=== PATIENT | male | born 1965 | race Caucasian/White ===

== ENCOUNTER 2016-09-03 12:17 | Emergency (ER) | payer OTHER ==
[~2016-09-03] VITALS: Ht 193 cm; Wt 111.4 kg
[2016-09-03 12:23] VITALS: TEMP 98.8
[2016-09-03] MEDS ORDERED: CHOLESTEROL MED (12:27)
[2016-09-03 13:49] VITALS: BP 136/97; PULSE 89
== END 2016-09-03 13:58 | disposition home or self-care (01) ==
LOC: COL.ER 12:17
DX: S61.012A Laceration without foreign body of left thumb without damage to nail, initial encounter (principal); W29.8XXA Contact with other powered hand tools and household machinery, initial encounter

== ENCOUNTER 2021-02-06 12:02 | Outpatient (CLI) | payer OTHER ==
[~2021-02-06] VITALS: Ht 193 cm; Wt 111.7 kg
[~2021-02-06 12:02] MED LIST: CHOLESTEROL MED
[2021-02-06] MEDS ORDERED: ELIQUIS 5MG PO (12:21)
[2021-02-06] MEDS ORDERED: LIPITOR 40MG TA40 MG PO (12:22)
[2021-02-06 12:57] VITALS: BP 114/79; PULSE 56; TEMP 98.3
[2021-02-06] MEDS ORDERED: ASPIRIN 81M81 MG/TA2 PO (14:28)
[2021-02-06 14:30] VITALS: BP 126/84; PULSE 60
[2021-02-06 14:56] LABS: HEMATOCRIT 43.6 % (42.0-52.0); HEMOGLOBIN 15.1 g/dl (13.5-18.0); MEAN CELL VOLUME 83 fl (80.0-100.0); MEAN CORPUSCULAR HEMOGLOBIN 29 pg (27.0-31.0); MEAN CORPUSCULAR HGB CONC 35 g/dl (33.0-37.0); MEAN PLATELET VOLUME 8.8 fl (7.4-10.4); PLATELET COUNT 296 K/mm3 (130-400); RED BLOOD COUNT 5.26 M/mm3 (4.20-5.60); REDCELL DISTRIBUTION WIDTH-CV 12.8 % (11.5-14.5)
--- NOTE | 2021-02-06 15:02 | NUR ---
Discharge instructions given to pt.Pt verbalizes understanding.Pt escorted out via ambulatory.
[2021-02-06 15:11] LABS: CHOLESTEROL RISK RATIO 4.9
[2021-02-06 15:29] LABS: INR 1.2 (0.8-3.0); PROTHROMBIN TIME 13.2 SECONDS (9.7-12.8)
== END 2021-02-06 15:03 ==
LOC: COL.CAR 12:02
PROVIDERS: Internal Medicine Interventional Cardiology; Nurse Practitioner
DX: I48.0 Paroxysmal atrial fibrillation (principal); F17.210 Nicotine dependence, cigarettes, uncomplicated; Z79.82 Long term (current) use of aspirin; Z79.01 Long term (current) use of anticoagulants; Z79.899 Other long term (current) drug therapy
CPT/HCPCS: 27124; C1764